=== PATIENT | female | born 1950 | race Caucasian/White ===

== ENCOUNTER → 2017-12-14 09:19 | Outpatient (CLI) | payer MEDICARE, OTHER, SELFPAY ==
--- NOTE | 2017-12-14 09:20 | BI_ITS ---
MAMMOGRAPHY - BILATERAL SCREENING REASON FOR EXAM: Female, 67 years old. Routine annual screening examination. PERTINENT HISTORY: Non-contributory. TECHNIQUE: Digital bilateral breast bryan (3D mammographic acquisition) in the CC and MLO projections. 2-D mediolateral oblique (MLO) and craniocaudad (CC) views of both breasts were obtained. CAD: Full Field Digital Mammography with Computer Added Detection was performed. COMPARISON: Comparison is made with prior study dated December 13, 2016. FINDINGS: Breast Composition: There are scattered areas of fibroglandular density. There are no dominant masses or suspicious calcifications. Stable asymmetry of breast tissue were more breast tissue is seen in the upper outer aspect of the left breast as compared to the right side. Stable 5.4 mm x 5 mm nodule in the anterior right breast. This was demonstrated to be a cyst on prior ultrasound. No other significant abnormalities are identified. There has been no significant change since the prior study. BI/SCREENING MAMM (CAD), BILAT IMPRESSION: Stable bilateral screening mammogram. Yearly follow-up mammogram recommended. (A) ASSESSMENT CATEGORY: BIRADS Category 2: Benign. A letter regarding these results will be sent to the patient by the facility within 30 days. Approximately 10% of breast cancers are not detected by mammography. A normal mammogram should not delay biopsy of a clinically suspicious abnormality. [id number] Electronically Signed: Chip Perry MD at 11:20 EDT Tel [phone], Service support ,
== END ==
PROVIDERS: Family Provider Family Medicine; PCP Family Medicine; Visit Provider Obstetrics & Gynecology
DX: Z12.31 Encounter for screening mammogram for malignant neoplasm of breast (principal)
CPT/HCPCS: 77063; 77067

== ENCOUNTER → 2018-01-24 12:45 | Outpatient (CLI) | payer OTHER, MEDICARE, SELFPAY ==
--- NOTE | 2018-01-24 12:53 | BD_ITS ---
STUDY: DUAL ENERGY X-RAY ABSORPTIOMETRY / DXA REASON FOR EXAM: Female, 67 years old. The patient is postmenopausal. Loss of height. TECHNIQUE: Bone Mineral Density (BMD) measurements of lumbar spine and bilateral hips were obtained. COMPARISON: None. FINDINGS: Lumbar Spine (L1-L4): g/cm2 (1.003) / T-score (-1.5) / Z-score (0.1) Findings are suggestive of osteopenia with a moderate fracture risk. Increased thoracic kyphosis. Left Femur Total: g/cm2 (0.815) / T-score (-1.5) / Z-score (-0.3) Left Femoral Neck: g/cm2 (0.722) / T-score (-2.3) / Z-score (-0.8) Right Femur Total: g/cm2 (0.827) / T-score (-1.4) / Z-score (-0.2) Right Femoral Neck: g/cm2 (0.752) / T-score (-2.1) / Z-score (-0.6) BD/Dexa Bone Density Study IMPRESSION: The patient is considered osteopenic as outlined below according to World Jm Organization (WHO) criteria with a moderate fracture risk. Reference Information: The T-score is the number of standard deviations above or below the standard which is normal for young adults at their peak bone mineral density. The World Health Organization (WHO) interprets the T-scores as follows: Above -1 Normal bone density Between -1 and -2.5 Osteopenia Equal to / or below -2.5 Osteoporosis As a practical clinical guideline, osteopenia may be graded as follows: Mild -1 through -1.5 Moderate -1.6 through -2.0 Severe -2.1 through -2.4 The Z-score is the number of standard deviations above or below age-matched controls. A Z-score of less than -1.5 would be considered abnormal. References: 1. NIH Osteoporosis and Related Bone Diseases http://www.osteo.org 2. International Society for Clinical Densitometry http://www.iscd.org 3. National Osteoporosis Foundation http://www.nof.org Electronically Signed: Chip Perry MD at 8:51 EDT Tel [phone], Service support ,
== END ==
PROVIDERS: Family Provider Family Medicine; PCP Family Medicine; Visit Provider Obstetrics & Gynecology
DX: Z78.0 Asymptomatic menopausal state (principal)
CPT/HCPCS: 77080

== ENCOUNTER → 2018-12-27 10:37 | Outpatient (CLI) | payer MEDICARE, OTHER, SELFPAY ==
[2018-03-03 11:04] VITALS: BMI 30.7
--- NOTE | 2018-12-27 10:41 | BI_ITS ---
MAMMOGRAPHY - BILATERAL SCREENING REASON FOR EXAM: Female, 68 years old. Routine annual screening examination. PERTINENT HISTORY: Non-contributory. TECHNIQUE: Digital bilateral breast dannie (3D mammographic acquisition) in the CC and MLO projections. 2-D mediolateral oblique (MLO) and craniocaudad (CC) views of both breasts were obtained. CAD: Full Field Digital Mammography with Computer Added Detection was performed. COMPARISON: Comparison is made with prior study dated December 14, 2017 and December 13, 2016. FINDINGS: Breast Composition: There are scattered areas of fibroglandular density. There are no dominant masses or suspicious calcifications. Scattered asymmetry of breast tissue or more breast tissue is seen in the upper-outer quadrant of the left breast as compared to the right side. Stable 4 mm x 5 mm well-defined nodule in the anterior retroareolar region of the right breast. This was demonstrated to be a cyst on prior ultrasound. No other significant abnormalities are identified. There has been no significant change since the prior study. BI/SCREEN MAMM (CAD) W/DANNIE BILAT IMPRESSION: Stable bilateral screening mammogram. Yearly follow-up mammogram recommended. (A) ASSESSMENT CATEGORY: BIRADS Category 2: Benign. A letter regarding these results will be sent to the patient by the facility within 30 days. Approximately 10% of breast cancers are not detected by mammography. A normal mammogram should not delay biopsy of a clinically suspicious abnormality. [id number] Electronically Signed: Chip Perry, at 12:54 EDT , Service support ,
== END ==
PROVIDERS: Family Provider Family Medicine; PCP Family Medicine; Referring Provider Obstetrics & Gynecology; Visit Provider Obstetrics & Gynecology
DX: Z12.31 Encounter for screening mammogram for malignant neoplasm of breast (principal)
CPT/HCPCS: 77063; 77067

== ENCOUNTER → 2020-01-17 10:46 | Outpatient (CLI) | payer MEDICARE, OTHER, SELFPAY ==
[2018-03-03 11:04] VITALS: BMI 30.7
[2019-08-01 10:33] VITALS: BMI 30.7
--- NOTE | 2020-01-17 10:46 | BI_ITS ---
MAMMOGRAPHY - BILATERAL SCREENING REASON FOR EXAM: Female, 69 years old. Routine annual screening examination. PERTINENT HISTORY: Non-contributory. TECHNIQUE: Digital bilateral breast dannie (3D mammographic acquisition) in the CC and MLO projections. 2-D mediolateral oblique (MLO) and craniocaudad (CC) views of both breasts were obtained. CAD: Full Field Digital Mammography with Computer Added Detection was performed. COMPARISON: Comparison is made with prior dated 12/27/2018 and December 14. FINDINGS: Breast Composition: There are scattered areas of fibroglandular density. There are no dominant masses or suspicious calcifications. Stable asymmetry of breast tissue with normal breast tissue is seen in the upper-outer quadrant of the left breast compared to the right side. No other significant abnormalities are identified. There has been no significant change since the prior study. BI/SCREEN MAMM (CAD) W/DANNIE BILAT IMPRESSION: Stable bilateral screening mammogram. Yearly follow-up mammogram recommended. (A) ASSESSMENT CATEGORY: BIRADS Category 2: Benign. A letter regarding these results will be sent to the patient by the facility within 30 days. Approximately 10% of breast cancers are not detected by mammography. A normal mammogram should not delay biopsy of a clinically suspicious abnormality. [id number] Electronically Signed: Chip Perry, at 12:16 EDT , Service support ,
== END ==
PROVIDERS: PCP Family Medicine; Referring Provider Obstetrics & Gynecology; Visit Provider Obstetrics & Gynecology
DX: Z12.31 Encounter for screening mammogram for malignant neoplasm of breast (principal)
CPT/HCPCS: 77063; 77067

== ENCOUNTER → 2020-06-02 16:23 | Outpatient (CLI) | payer MEDICARE, OTHER, SELFPAY ==
[2020-06-02 11:01] VITALS: BMI 33.6
[2020-06-06 08:41] LABS: HPV APTIMA, High Risk Negative (Negative)
== END ==
PROVIDERS: PCP Family Medicine; Referring Provider Obstetrics & Gynecology; Visit Provider Obstetrics & Gynecology
DX: Z12.4 Encounter for screening for malignant neoplasm of cervix (principal); R87.619 Unspecified abnormal cytological findings in specimens from cervix uteri
CPT/HCPCS: 87624; 88175; G0145

== ENCOUNTER → 2021-01-23 14:37 | Outpatient (CLI) | payer MEDICARE, OTHER, SELFPAY ==
--- NOTE | 2021-01-23 14:48 | BI_ITS ---
MAMMOGRAPHY - BILATERAL SCREENING REASON FOR EXAM: Female, 70 years old. Routine annual screening examination. PERTINENT HISTORY: Non-contributory. TECHNIQUE: Digital bilateral breast dannie (3D mammographic acquisition) in the CC and MLO projections. 2-D mediolateral oblique (MLO) and craniocaudad (CC) views of both breasts were obtained. CAD: Full Field Digital Mammography with Computer Added Detection was performed. COMPARISON: Comparison is made with prior study dated 01/17/2020 and 12/27/2018. FINDINGS: Breast Composition: There are scattered areas of fibroglandular density. There are no dominant masses or suspicious calcifications. Stable asymmetry of breast tissue where more breast tissue is seen in the upper outer quadrant of the left breast as compared to the right side. No other significant abnormalities are identified. There has been no significant change since the prior study. BI/SCRN MAMM (CAD)W/DANNIE BILAT IMPRESSION: Stable bilateral screening mammogram. Yearly follow-up mammogram recommended. (A) ASSESSMENT CATEGORY: BIRADS Category 2: Benign. A letter regarding these results will be sent to the patient by the facility within 30 days. Approximately 10% of breast cancers are not detected by mammography. A normal mammogram should not delay biopsy of a clinically suspicious abnormality. [id number] Electronically Signed: Chip Perry MD at 8:07 EDT , Service support ,
== END ==
PROVIDERS: PCP Family Medicine; Referring Provider Obstetrics & Gynecology; Visit Provider Obstetrics & Gynecology
DX: Z12.31 Encounter for screening mammogram for malignant neoplasm of breast (principal)
CPT/HCPCS: 77063; 77067

== ENCOUNTER 2021-06-09 11:03 | Outpatient (CLI) | payer MEDICARE, OTHER, SELFPAY ==
--- NOTE | 2021-06-09 11:06 | EKG12_ITS ---
Test Reason : ROUTINE Blood Pressure : / mmHG Vent. Rate : 083 BPM Atrial Rate : 083 BPM P-R Int : 150 ms QRS Dur : 082 ms QT Int : 348 ms P-R-T Axes : 056 050 040 degrees QTc Int : 408 ms Normal sinus rhythm Normal ECG Confirmed by MELODY VERGARA, MINDY ([id number]), health editor ASHLYN CHANEL ([id number]) on 06/11/2021 10:08:12 AM Referred By: Annabel Pandey Confirmed By:MINDY OLIVER MD
== END 2021-06-09 23:59 | disposition home or self-care (01) ==
LOC: PSN 11:05
PROVIDERS: PCP Family Medicine; Referring Provider Obstetrics & Gynecology; Visit Provider Obstetrics & Gynecology
DX: R63.4 Abnormal weight loss (principal)
CPT/HCPCS: 93005

== ENCOUNTER → 2021-12-10 | Outpatient (CLI) | payer MEDICARE, OTHER, SELFPAY ==
[2021-12-10 11:53] LABS: ALB/GLOB Ratio 0.9 RATIO (0.9-2.4); AST(SGOT) 21 U/L (15-37); Alanine Aminotransfer ALT/SGPT 17 U/L (13-56); Albumin, Serum 3.6 g/dL (3.2-5.0); Alkaline Phosphatase 87 U/L (45-117); Anion Gap 5 (5-15); BUN 19 mg/dL (7-18); BUN/Creat Ratio 18.6 RATIO (10-20); Calcium,Total 9.8 mg/dL (8.5-10.1); Chloride 106 mmol/L (98-107); Creatinine, Serum 1.02 mg/dL (0.55-1.02); EST Glomerular Filtration Rate 57 mL/min (>60); Est Glom Filt Rate - Afr Amer 69 mL/min (>60); Globulin 4.2 g/dL (2.2-4.2); Glucose 93 mg/dL (74-106); Potassium 4.3 mmol/L (3.5-5.1); Protein, Total 7.8 g/dL (6.4-8.2); Sodium Level 141 mmol/L (136-145)
== END | disposition home or self-care (01) ==
LOC: PAVLAB 11:00
PROVIDERS: PCP Family Medicine; Referring Provider Obstetrics & Gynecology; Visit Provider Obstetrics & Gynecology
DX: Z71.3 Dietary counseling and surveillance (principal); Z68.28 Body mass index [BMI] 28.0-28.9, adult
CPT/HCPCS: 36415; 80053

== ENCOUNTER → 2022-04-08 | Outpatient (CLI) | payer MEDICARE, OTHER, SELFPAY ==
--- NOTE | 2022-04-08 10:22 | BI_ITS ---
MAMMOGRAPHY - BILATERAL SCREENING REASON FOR EXAM: Female, 71 years old. Routine annual screening examination. PERTINENT HISTORY: Non-contributory. TECHNIQUE: Digital bilateral breast dannie (3D mammographic acquisition) in the CC and MLO projections. 2-D mediolateral oblique (MLO) and craniocaudad (CC) views of both breasts were obtained. CAD: Full Field Digital Mammography with Computer Added Detection was performed. COMPARISON: Comparison is made with prior study 01/23/2021 and 01/17/2020. FINDINGS: Breast Composition: There are scattered areas of fibroglandular density. There are no dominant masses or suspicious calcifications. Stable asymmetry of the breast tissues were more breast tissue is seen in the upper outer quadrant of the left breast as compared to the left side No other significant abnormalities are identified. There has been no significant change since the prior study. BI/SCRN MAMM (CAD)W/DANNIE BILAT IMPRESSION: Stable bilateral screening mammogram. Yearly follow-up mammogram recommended. (A) ASSESSMENT CATEGORY: BIRADS Category 2: Benign. A letter regarding these results will be sent to the patient by the facility within 30 days. Approximately 10% of breast cancers are not detected by mammography. A normal mammogram should not delay biopsy of a clinically suspicious abnormality. [id number] Electronically Signed: Chip Perry MD at 11:15 EST ,
== END | disposition home or self-care (01) ==
LOC: OPBI 10:20
PROVIDERS: PCP Family Medicine; Visit Provider Obstetrics & Gynecology
DX: Z12.31 Encounter for screening mammogram for malignant neoplasm of breast (principal)
CPT/HCPCS: 77063; 77067

== ENCOUNTER → 2023-02-03 | Outpatient (CLI) | payer MEDICARE, OTHER, SELFPAY ==
[2023-02-03 12:02] LABS: Absolute Lymphocyte Count 1.92 X10^3/uL (0.83-4.51); Basophil# 0.06 X10^3/uL; Basophil% 1.1 % (0-1); Eosinophil# 0.16 X10^3/uL; Eosinophils% 2.8 % (0-5); Hematocrit 41.5 % (37-47); Hemoglobin 13.3 g/dL (12.0-15.0); Lymphocyte # 1.92 X10^3/ul (0.83-4.51); Lymphocyte % 33.7 % (19-41); Mean Corpuscular Hgb 29.5 pg (27.0-32.0); Mean Platelet Vol. 9.5 fl (6.2-12.0); Monocyte# 0.55 X10^3/uL; Monocyte% 9.7 % (0-10); NRBC Flagged by Analyzer 0 % (0-5); Neutrophil # 2.98 X10^3/uL (2.7-7.7); Neutrophil % 52.3 % (47-70); Platelet Count 324 K/mm3 (150-450); RBC Distribution Width CV 13.3 % (11.6-14.6); RBC Distribution Width SD 45.6 fl (35.1-43.9); Red Blood Count 4.51 M/mm3 (4.2-5.4); White Blood Count 5.7 K/mm3 (4.4-11.0)
[2023-02-03 12:41] LABS: Anion Gap 3 (5-15); BUN 20 mg/dL (7-18); BUN/Creat Ratio 19.2 RATIO (10-20); Chloride 109 mmol/L (98-107); Creatinine, Serum 1.04 mg/dL (0.55-1.02); EST Glomerular Filtration Rate 56 mL/min (>60); Est Glom Filt Rate - Afr Amer 67 mL/min (>60); Glucose 103 mg/dL (74-106); Potassium 4.2 mmol/L (3.5-5.1); Sodium Level 139 mmol/L (136-145)
== END | disposition home or self-care (01) ==
LOC: LAB 11:32
PROVIDERS: PCP Family Medicine; Referring Provider Obstetrics & Gynecology; Visit Provider Obstetrics & Gynecology
DX: E66.09 Other obesity due to excess calories (principal); E78.5 Hyperlipidemia, unspecified; Z71.3 Dietary counseling and surveillance; Z68.34 Body mass index [BMI] 34.0-34.9, adult
CPT/HCPCS: 36415; 80048; 85025

== ENCOUNTER → 2023-04-21 | Outpatient (CLI) | payer MEDICARE, SELFPAY ==
--- NOTE | 2023-04-21 10:33 | BI_ITS ---
MAMMOGRAPHY - BILATERAL SCREENING REASON FOR EXAM: Female, 72 years old. Routine annual screening examination. PERTINENT HISTORY: Non-contributory. TECHNIQUE: Digital bilateral breast dannie (3D mammographic acquisition) in the CC and MLO projections. 2-D mediolateral oblique (MLO) and craniocaudad (CC) views of both breasts were obtained. CAD: Full Field Digital Mammography with Computer Added Detection was performed. COMPARISON: Comparison is made with prior examination dated October 06, 2022 and January 23, 2022. FINDINGS: Breast Composition: There are scattered areas of fibroglandular density. There are no dominant masses or suspicious calcifications. Stable asymmetry of breast tissue where more breast tissue is seen in the upper outer quadrant of the left breast as compared to the left side. No other significant abnormalities are identified. There has been no significant change since the prior study. BI/SCRN MAMM (CAD)W/DANNIE BILAT IMPRESSION: Stable bilateral screening mammogram. Yearly follow-up mammogram recommended. (A) ASSESSMENT CATEGORY: BIRADS Category 2: Benign. A letter regarding these results will be sent to the patient by the facility within 30 days. Approximately 10% of breast cancers are not detected by mammography. A normal mammogram should not delay biopsy of a clinically suspicious abnormality. [id number] Electronically Signed: Chip Perry MD at 13:26 EST ,
--- OUTSIDE RECORDS SUMMARY | 2023-04-21 10:54 | XMS RPT_ITS | CCD ---
Author Name Unknown Address [address] [place] [address] Organization [facility] Care Team Providers Care Asset Protection Specialist Name Role Phone Dannie VERGARA, Annabel Whitley Unavailable [phone] Juan Francisco Hoffman MD Primary Care Provider [phone] Juan Francisco Hoffmna MD Primary Care Provider [phone] Juan Francisco Hoffman MD Primary Care Provider [phone] JUAN FRANCISCO HOFFMAN Primary Care Unavailable ALEIDA LOMBARDI Attending Unavailable JUAN FRANCISCO HOFFMAN Primary Care Unavailable JUAN FRANCISCO HOFFMAN Referring Unavailable JUAN FRANCISCO HOFFMAN Primary Care Unavailable Allergies Allergy Classification Reported Allergen(s) Allergy Type Date of Onset Reaction(s) Facility (2 sources) sulfamethoxazole / trimethoprim drug allergy 12-08-19 17 [facility] (2 sources) EQL LATEX EXAM GLOVES drug allergy 12-08-19 [facility] (9 sources) Latex; Translations: [LATEX] Drug Intolerance 02-01-20 06 Other: See Comments [facility] Work Phone: (9 sources) Sulfonamides (Antibiotic); Translations: [SULFA (SULFONAMIDE ANTIBIOTICS)] Drug Allergy 01-01-20 05 Hives [facility] Work Phone: Medications Current Medications Medication Drug Class(es) Dates Sig (Normalized) Sig (Original) gabapentin 300 mg oral capsule (11 sources) Anti-epileptic Agent Start: 10-05-2021 End: 09-06-2023 take 1 capsule by mouth twice daily for pain gabapentin (NEURONTIN) 300 mg capsule Indications: RLS (restless legs syndrome) TAKE 1 CAPSULE BY MOUTH TWICE A DAY FOR RADICULAR LEG PAIN AND RESTLESS LEG 180 capsule 1 10/04/2022 09/06/2023 Active Completed/Discontinued Medications Medication Drug Class(es) Dates Sig (Normalized) Sig (Original) aspirin 81 mg chewable tablet (8 sources) Platelet Aggregation Inhibitor, Nonsteroidal Anti-inflammatory Drug Start: 05-10-2018 take 1 tablet by mouth once daily aspirin 81 mg chewable tablet Take 1 tablet by mouth once daily. 0 05/10/2018 Active Problems Active Problems Problem Classification Problem Date Documented Date Episodic/Chronic Disorders of lipid metabolism (15 sources) Mixed hyperlipidemia; Translations: [Mixed hyperlipidemia] Onset: 02-12-2015 Chronic Esophageal disorders (11 sources) Gastroesophageal reflux disease without esophagitis; Translations: [Gastro-esophageal reflux disease without esophagitis] Onset: 02-12-2015 02-12-2015 Chronic Immunizations and screening for infectious disease (1 source) Vaccination needed; Translations: [Encounter for immunization] Episodic Menopausal disorders (8 sources) Menopausal syndrome; Translations: [Menopausal and female climacteric states] Onset: 08-01-2013 02-12-2015 Chronic Miscellaneous mental health disorders (10 sources) Primary insomnia; Translations: [Primary insomnia] Onset: 08-16-2016 11-07-2017 Chronic Osteoarthritis (8 sources) Arthritis of knee; Translations: [Unilateral primary osteoarthritis, unspecified knee] Onset: 01-05-2010 02-13-2016 Chronic Osteoporosis (8 sources) Senile osteoporosis; Translations: [Age-related osteoporosis without current pathological fracture] Onset: 10-06-2010 11-13-2020 Chronic Other hereditary and degenerative nervous system conditions (12 sources) Restless legs; Translations: [Restless legs syndrome] Onset: 05-24-2013 02-12-2015 Chronic Other nutritional; endocrine; and metabolic disorders (7 sources) Simple obesity ; Translations: [Other obesity due to excess calories] Onset: 08-16-2016 08-16-2016 Chronic Other nutritional; endocrine; and metabolic disorders (3 sources) Obesity caused by energy imbalance; Translations: [Other obesity due to excess calories] Onset: 08-16-2016 08-16-2016 Chronic Other skin disorders (2 sources) Lichen sclerosus et atrophicus; Translations: [Lichen sclerosus et atrophicus] Onset: 12-07-2016 12-07-2016 Chronic Unclassified (2 sources) Gynecologic examination ; Translations: [Encounter for gynecological examination (general) (routine) with abnormal findings] Onset: 12-07-2016 12-07-2016 Unclassified (2 sources) Screening mammography ; Translations: [Encounter for screening mammogram for malignant neoplasm of breast] Onset: 12-07-2016 12-07-2016 Past or Other Problems Problem Classification Problem Date Documented Da te Episodic/Chronic Administrative/social admission (6 sources) Advance directive discussed with patient; Translations: [Other specified counseling] Onset: 03-04-2022 Episodic Diabetes mellitus without complication (11 sources) High hemoglobin A1c level; Translations: [Other abnormal glucose] Onset: 05-10-2018 05-10-2018 Episodic Nutritional deficiencies (9 sources) Iron deficiency; Translations: [Iron deficiency] Onset: 02-12-2015 03-23-2021 Episodic Other aftercare (1 source) Drug therapy finding; Translations: [Other safety glass installer (current) drug therapy] Onset: 04-27-2017 04-27-2017 Episodic Other non-traumatic joint disorders (8 sources) Pain in right hip joint; Translations: [Pain in right hip] Onset: 09-10-2019 09-10-2019 Episodic Other screening for suspected conditions (not mental disorders or infectious disease) (16 sources) Patient encounter status; Translations: [Encounter for screening for malignant neoplasm of colon] Onset: 08-16-2016 08-16-2016 Episodic Residual codes; unclassified (6 sources) Active living will ; Translations: [Other specified health status] Onset: 03-04-2022 Episodic Spondylosis; intervertebral disc disorders; other back problems (8 sources) Sacroiliac joint pain; Translations: [Sacrococcygeal disorders, not elsewhere classified] Onset: 09-10-2019 09-10-2019 Episodic Results Test Name Value Interpretation Reference Range Facil ity Vital Signs Date Time Vital Sign Value Performing Clinician Faci lity 09-02-2022 10:51-0400 Body weight 73.94 kg Aleida Lombardi APRN.CNP Work Phone: [facility] 09-02-2022 10:51-0400 Diastolic blood pressure 78 mm[Hg] Aleida Lombardi APRN.CNP Work Phone: [facility] 09-02-2022 10:51-0400 Heart rate 70 /min Aleida Lombardi APRN.CNP Work Phone: [facility] 09-02-2022 10:51-0400 Respiratory rate 14 /min Aleida Lombardi JET HANDLER.MEDICAL RECORDS SECRETARY Work Phone: [facility] 09-02-2022 10:51-0400 Systolic blood pressure 124 mm[Hg] Aleida Lombardi APRN.MEDICAL RECORDS SECRETARY Work Phone: [facility] 03-04-2022 11:06-0500 Body height 158.8 cm Juan Francisco Hoffman MD Work Phone: [facility] 03-04-2022 11:06-0500 Body weight 78.47 kg Juan Francisco Hoffman MD Work Phone: [facility] 03-04-2022 11:06-0500 Diastolic blood pressure 78 mm[Hg] Juan Francisco Hoffman MD Work Phone: [facility] 03-04-2022 11:06-0500 Heart rate 72 /min Juan Francisco Hoffman MD Work Phone: [facility] 03-04-2022 11:06-0500 Respiratory rate 14 /min Juan Francisco Hoffman MD Work Phone: [facility] 03-04-2022 11:06-0500 Systolic blood pressure 116 mm[Hg] Juan Francisco Hoffman MD Work Phone: [facility] 08-19-2021 14:15-0400 Body weight 79.83 kg Juan Francisco Hoffman MD Work Phone: [facility] 08-19-2021 14:15-0400 Diastolic blood pressure 70 mm[Hg] Juan Francisco Hoffman MD Work Phone: [facility] 08-19-2021 14:15-0400 Heart rate 76 /min Juan Francisco Hoffman MD Work Phone: [facility] 08-19-2021 14:15-0400 Respiratory rate 16 /min Juan Francisco Hoffman MD Work Phone: [facility] 08-19-2021 14:15-0400 Systolic blood pressure 120 mm[Hg] Juan Francisco Hoffman MD Work Phone: [facility] 12-07-2016 [id number] BMI (Body Mass Index) 35.94 kg/m2 Annabel Pandey MD [facility] 12-07-2016 15:06-0400 Body Temperature 97.2 [degF] Annabel Pandey MD [facility] 12-07-2016 15:06-0400 BP Diastolic 75 mm[Hg] Annabel Pandey MD [facility] 12-07-2016 15:06-0400 BP Systolic 127 mm[Hg] Annabel Pandey MD [facility] 12-07-2016 15:06-0400 Height 162.56 cm Annabel Pandey MD [facility] 12-07-2016 [id number] Pulse (Heart Rate) 81 /min Annabel Pandey MD [facility] 12-07-2016 15:06-0400 Respiratory Rate 16 /min Annabel Pandey MD [facility] 12-07-2016 [id number] Weight 94.98 kg Annabel Pandey MD [facility] Encounters Encounter Date Encounter Type Care Provider Facility Start: 03-09-2023 End: 03-09-2023 ambulatory Immunization Clinic Nurse Charlene Work Phone: [facility] Start: 12-06-2022 Refchristina allison MD Work Phone: Orthopaedics Start: 10-04-2022 Refill Juan Francisco allison MD Work Phone: [facility] Procedures Date Procedure Procedure Detail Performing Clinician Start: 03-09-2023 INFLUENZA VACCINE, P RSV FREE, AGE 65+ YR, HIGH DOSE, QUADRIVALENT (FLUZONE HIGH-DOSE) Paolo Lester MD Work Phone: Start: 08-25-2022 Lipid 1996 panel - S shea or Plasma [facility] Work Phone: Start: 04-08-2022 Mammography Aleida ashby JET HANDLER.MEDICAL RECORDS SECRETARY Work Phone: Start: 03-04-2022 PFIZER-BIONTeReplicant COVI D-19 BIVALENT BOOSTER VACCINE, AGE 12+ YR Juan Francisco Hoffman MD Work Phone: Start: 03-04-2022 INFLUENZA SEASONAL QUADRIVALENT HIGH DOSE AGE 65+ Juan Francisco Hoffman MD Work Phone: Start: 01-23-2021 Mammography Juan Francisco hicks MD Work Phone: Start: 09-30-2014 Colonoscopy Juan Francisco hicks MD Work Phone: Plan of Treatment Date Care Activity Detail Author Start: 08-26-2027 Lipid panel Lipid Screening [facility] Start: 08-26-2027 LIPID SCREEN LIPID SCREEN [facility] Start: 02-25-2027 LIPID SCREEN LIPID SCREEN [facility] Start: 08-06-2026 LIPID SCREEN LIPID SCREEN [facility] Start: 02-12-2026 LIPID SCREEN LIPID SCREEN [facility] Start: 08-25-2025 DIABETES SCREEN DIABETES SCREEN [facility] Start: 08-25-2025 Diabetes Screening Diabetes Screening [facility] Start: 02-25-2025 DIABETES SCREEN DIABETES SCREEN [facility] Start: 09-30-2024 Colonoscopy COLONOSCOPY [facility] Start: 09-30-2024 COLORECTAL CANCER SCREENING COLORECTAL CANCER SCREENING [facility] Start: 09-30-2024 Screening for malignant neoplasm of colon [facility] Start: 09-04-2024 Urine microalbumin profile [facility] Start: 08-06-2024 DIABETES SCREEN DIABETES SCREEN [facility] Start: 02-13-2024 DIABETES SCREEN DIABETES SCREEN [facility] Start: 04-08-2023 Mammography MAMMOGRAM [facility] Start: 04-08-2023 Screening for malignant neoplasm of breast Mammogram Screening [facility] Start: 11-26-2022 Covid-19 Vaccine ( season) Covid-19 Vaccine ( season) [facility] Start: 11-26-2022 Influenza vaccination INFLUENZA (#1) [facility] Start: 08-20-2022 End: 10-20-2022 Hemoglobin A1c in Blood HGB A1C Lab Routine Elevated hemoglobin A1c Expected: 08/20/2022, Expires: 10/20/2022 [facility] Work Phone: Immunizations Immunization Date Immunization Notes Care Provider Fa cili 03-09-2023 influenza (HD-IIV4) vaccine, age 65+ yr, high dose, quadrivalent, PF (FLUZONE HIGH-DOSE) [facility] Work Phone: [facility] Work Phone: 03-04-2022 COVID-19 booster vaccine, age 12+ yr, bivalent (PFIZER-BIONTECH) Juan Francisco Hoffman MD Work Phone: [facility] 03-04-2022 influenza, high-dose , quadrivalent vaccine (FLUZONE HIGH DOSE QUADRIVALENT) Juan Francisco Hoffman MD Work Phone: [facility] 03-19-2021 COVID-19 vaccine, ag e 12+ yr (PFIZER-BIONTECH - PURPLE TOP) Juan Francisco Hoffman MD Work Phone: [facility] Work Phone: 02-16-2021 influenza, high-dose , quadrivalent vaccine (FLUZONE HIGH DOSE QUADRIVALENT) Juan Francisco Hoffman MD Work Phone: [facility] 07-04-2020 COVID-19 vaccine, ag e 12+ yr (PFIZER-BIONTECH - PURPLE TOP) Juan Francisco Hoffman MD Work Phone: [facility] 06-13-2020 COVID-19 vaccine, ag e 12+ yr (PFIZER-BIONTECH - PURPLE TOP) Juan Francisco Hoffman MD Work Phone: [facility] Work Phone: 04-17-2020 zoster vaccine recombinant Juan Francisco Hoffman MD Work Phone: [facility] 02-13-2020 zoster vaccine recombinant Juan Francisco Hoffman MD Work Phone: [facility] 12-20-2019 influenza, high dose seasonal, preservative-free Juan Francisco Hoffman MD Work Phone: [facility] 05-17-2019 influenza, high dose seasonal, preservative-free Juan Francisco Hoffman MD Work Phone: [facility] 11-09-2018 pneumococcal polysaccharide vaccine, 23 valent Juan Francisco Hoffman MD Work Phone: [facility] 02-07-2018 influenza virus vaccine, unspecified formulation Juan Francisco Hoffman MD Work Phone: [facility] Work Phone: 11-07-2017 pneumococcal conjuga te vaccine, 13 valent Juan Francisco Hoffman MD Work Phone: [facility] 02-03-2017 influenza, injectabl e, quadrivalent, preservative free Juan Francisco Hoffman MD Work Phone: [facility] 02-03-2017 influenza, seasonal, injectable Juan Francisco Hoffman MD Work Phone: [facility] 02-18-2016 influenza, injectabl e, quadrivalent, contains preservative Juan Francisco Hoffman MD Work Phone: [facility] Work Phone: 02-12-2015 influenza, injectabl e, quadrivalent, contains preservative Juan Francisco Hoffman MD Work Phone: [facility] Work Phone: 02-12-2015 influenza, injectabl e, quadrivalent, preservative free Juan Francisco Hoffman MD Work Phone: [facility] 09-04-2014 tetanus toxoid, redu ami diphtheria toxoid, and acellular pertussis vaccine, adsorbed Juan Francisco Hoffman MD Work Phone: [facility] Work Phone: 09-04-2014 zoster vaccine, live Juan Francisco Hoffman MD Work Phone: [facility] Work Phone: 04-26-2013 influenza virus vaccine, unspecified formulation Juan Francisco Hoffman MD Work Phone: [facility] 01-04-2012 influenza virus vaccine, unspecified formulation Juan Francisco Hoffman MD Work Phone: [facility] 01-06-2011 influenza virus vaccine, unspecified formulation Juan Francisco Hoffman MD Work Phone: [facility] 01-05-2010 influenza virus vaccine, unspecified formulation Juan Francisco Hoffman MD Work Phone: [facility] Work Phone: 08-26-2004 diphtheria and tetan us toxoids, adsorbed for pediatric use Juan Francisco Hoffman MD Work Phone: [facility] Work Phone: Payers Date Payer Category Payer Medicare MEDICARE MEDICAR E A AND B [id number] 2017-Present [phone] [place] [address] Medicare [id number] 2017 Medicare MEDICARE MEDICAR E A AND B [id number] 2017-Present [phone] [place] [address] Medicare [id number] 2017 Medicare [id number] 2017 Unknown MMO MMO TRADITIO NAL [id number] 2017-Present [phone] [address] [place] [address] Indemnity [id number] 2017 Unknown MMO MMO [employer] NAL [id number] 2017-Present [phone] [address] [place] [address] Indemnity [id number] Social History Date Type Detail Facility Start: 10-06-2010 Tobacco smoking stat us NHIS Never smoked tobacco [facility] Start: 02-16-2021 End: 03-04-2022 Alcohol intake Current non-drinker of alcohol (finding) [facility] Start: 1950 Sex Assigned At Female [facility] Start: 08-09-2021 End: 08-19-2021 Exposure to SARS-CoV-2 (event) Not sure [facility] Start: 10-06-2010 Tobacco use and exposure Smokeless tobacco non-user [facility] Work Phone: Start: 03-04-2022 End: 09-02-2022 History of Social function [facility] Work Phone: Start: 03-04-2022 End: 09-02-2022 Tobacco use panel [facility] Work Phone: Adult Depression Screening Assessment 0 [facility] Work Phone: Start: 10-31-2019 Gender identity Identifies as female gender (finding) [facility] Start: 10-31-2019 Sexual orientation Heterosexual (fin oskar) [facility] Clinical Notes 06-18-2021 to 12-06-2022 Telephone Encounter - Cristina Watkins - 12/06/2022 11:05 AM EDTTelephone Encounter - Juan Francisco Hoffman MD - 10/04/2022 4:43 PM EDTTelephone Encounter - Rama Leger - 10/04/2022 10:39 AM EDT Note Date & Type Note Facility 12-06-2022 Miscellaneous Notes Patient has been identified by name and date of : Yes Last office visit in this department: Visit date not found RX INSTRUCTIONS: Patient aware RX will be sent to pharmacy. No need to notify patient. Patient phones requesting refills as follows: Requested Prescriptions Pending Prescriptions Disp Refills simvastatin (ZOCOR) 20 mg tablet 90 tablet 1 Sig: Take 1 tablet by mouth every evening. Please review and advise. Cristina Watkins documented in this encounter [facility] 10-04-2022 Miscellaneous Notes The following approved medication requests have been transmitted electronically. Requested Prescriptions Signed Prescriptions Disp Refills gabapentin (NEURONTIN) 300 mg capsule 180 capsule 1 Sig: TAKE 1 CAPSULE BY MOUTH TWICE A DAY FOR RADICULAR LEG PAIN AND RESTLESS LEG Authorizing Provider: JUAN FRANCISCO HOFFMAN MD [facility] 09/02/22 NOV 03/31/23 Please review and advise. Thank you. IMAN Perez Patient has been identified by name and date of : Yes Last office visit in this department: 09/02/2022 RX INSTRUCTIONS: Patient aware RX will be sent to pharmacy. No need to notify patient. Patient phones requesting refills as follows: Requested Prescriptions Pending Prescriptions Disp Refills gabapentin (NEURONTIN) 300 mg capsule 180 capsule 1 Sig: TAKE 1 CAPSULE BY MOUTH TWICE A DAY FOR RADICULAR LEG PAIN AND RESTLESS LEG Please review and advise. Rama Rico Pss documented in this encounter [facility] 09-02-2022 Note HNO ID: [id number] Author: Aleida Lombardi APRN.MEDICAL RECORDS SECRETARY Service: ? Author Type: Nurse Practitioner Type: Progress Notes Filed: 09/02/2022 11:29 AM Note Text: Chief Complaint No chief complaint on file. HPI Britta Kim is a 72 year old female who presents here today for Above Complaints.. Patient presents for routine follow up. Patient recently had lab work done to check cholesterol and screen for diabetes. Past medical history, appointments, medications, allergies reviewed. Previous Medical History PAST MEDICAL HISTORY Diagnosis Date Advance directive discussed with patient 03/04/2022 Discussed 02/2022: Patient to bring in copies Arthritis knees Arthritis of knee 01/05/2010 Climacteric 08/01/2013 Elevated hemoglobin A1c 05/10/2018 GERD without esophagitis 02/12/2015 Iron deficiency 02/12/2015 FELT TO BE RELATED TO HER OMEPRAZOLE. Living will in place 03/04/2022 DPA: Guru (Daughter) Mixed hyperlipidemia 02/12/2015 Non morbid obesity due to excess calories 08/16/2016 Osteopenia 10/06/2010 Primary insomnia 08/16/2016 RLS (restless legs syndrome) Unspecified constipation Previous Surgical History PAST SURGICAL HISTORY Procedure Laterality Date ANESTH OPEN/SURG ARTHRS TOTAL KNEE ARTHROPLASTY 05/13/2014 left knee; Dr Gonzales COLONOSCOPY 09/30/14 normal, repeat 10 yrs COLONOSCOPY FLX DX W/COLLJ SPEC WHEN PFRMD 01/19/06 COLONOSCOPY FLX DX W/COLLJ SPEC WHEN PFRMD 01/21/12 Colonoscopy - repeat 10 yrs EGD 09/30/14 esophagitis FECAL OCCULT BLOOD TEST 09/22/2016 negative KNEE ARTHROSCOP MENISCUS REPAIR MED/LAT LAPAROSCOPY SURG CHOLECYSTECTOMY Cholecystectomy, lap VAGINAL DELIVERY HX x2 Family History FAMILY HISTORY Problem Relation Age of Onset Alzheimer's Disease Mother Thyroid Mother Coronary Artery Disease Father 5 by pass with valve replacement Cancer Maternal Grandmother leukemia Thyroid Daughter Graves Patient Allergies ALLERGIES Allergen Reactions Sulfa (Sulfonamide * Hives Latex Other: See Comments blisters Current Medications Current Outpatient Medications on File Prior to Visit Medication Sig simvastatin (ZOCOR) 20 mg tablet Take 1 tablet by mouth every evening. gabapentin (NEURONTIN) 300 mg capsule TAKE 1 CAPSULE BY MOUTH TWICE A DAY FOR RADICULAR LEG PAIN AND RESTLESS LEG aspirin 81 mg chewable tablet Take 1 tablet by mouth once daily. venlafaxine ER (EFFEXOR XR) 37.5 mg 24 hr capsule Take 1 capsule by mouth once daily. omeprazole (PRILOSEC) 20 mg capsule Take 1 capsule by mouth once daily as needed. Calcium-Vitamin D3-Vitamin K (VIACTIV) 500-100-40 mg-unit-mcg ORAL Chew Take 1 tablet by mouth twice daily. CHEW TAB BEFORE SWALLOWING DAILY MULTIPLE TAB topiramate (TOPAMAX) 25 mg tablet Take 25 mg by mouth twice daily. Phentermine HCl 37.5 mg capsule Take 37.5 mg by mouth. No current facility-administered medications on file prior to visit. Social History Social History Tobacco Use Smoking status: Never Smokeless tobacco: Never Vaping Use Vaping Use: Never used Substance Use Topics Alcohol use: No Drug use: No Review of Symptoms REVIEW OF SYSTEMS SEE HPI EXAM: BP 124/78 Pulse 70 Resp 14 Wt 73.9 kg (163 lb) LMP 12/02/2008 BMI 29.34 kg/m? General Appearance: Well appearing, alert, in no acute distress, well-hydrated, well nourished.. Lungs: Lungs clear to auscultation. No wheezing, rhonchi, rales.. Heart: RRR without murmur, gallop, or rubs. No ectopy. Peripheral Pulses: Normal. Health Maintenance List ADVANCE DIRECTIVE DISCUSSION due on 03/28/2022 DEPRESSION ASSESSMENT due on 03/28/2022 MAMMOGRAM due on 04/08/2023 DTAP,TDAP,TD(3 - Td or Tdap) due on 09/04/2024 COLORECTAL CANCER SCREENING due on 09/30/2024 DIABETES SCREEN due on 08/25/2025 LIPID SCREEN due on 08/26/2027 BONE DENSITY Completed INFLUENZA Completed HEPATITIS C SCREENING Completed SHINGRIX VACCINE Completed COVID-19 VACCINE Completed PNEUMOCOCCAL: 65+ Completed Data Review Component Latest Ref Rng AND Units 08/25/2022 Total Cholesterol, Nonfasting <200 mg/dL 166 Triglycerides, Nonfasting <150 mg/dL 76 HDL Cholesterol, Nonfasting >39 mg/dL 58 LDL Cholesterol, Nonfasting <100 mg/dL 93 Non HDL Cholesterol, Nonfasting <130 mg/dL 108 VLDL Cholesterol, Nonfasting <30 mg/dL 15 Total Chol/HDL Ratio, Nonfasting <5.10 mg/dL 2.86 LDL/HDL Ratio, Nonfasting <2.54 mg/dL 1.60 Hemoglobin A1C 4.3 - 5.6 % 5.5 Estimated Average Glucose mg/dL 111 ASSESSMENT/PLAN: 1. Mixed hyperlipidemia - ICD9: 272.2, ICD10: E78.2 (primary diagnosis) - Controlled - Continue current medications - Counseled on healthy diet and regular exercise - Discussed need for and benefit of weight loss. BMI 29.34 kg/(m2) 2. RLS (restless legs syndrome) - ICD9: 333.94, ICD10: G25.81 -Continue current medications 3. GERD without esophagitis - ICD9: 530.81, ICD10: K21.9 - Discussed lifestyle modifications including (more content not included)... [facility] 09-02-2022 Instructions Aleida Lombardi APRN.CNP - 09/02/2022 11:28 AM EDT Continue current medications Follow up in 6 months for medicare wellness documented in this encounter [facility] 09-02-2022 History of Presen t illness Narrative Chief Complaint No chief complaint on file. MARAL Kim is a 72 year old female who presents here today for Above Complaints.. Patient presents for routine follow up. Patient recently had lab work done to check cholesterol and screen for diabetes. Past medical history, appointments, medications, allergies reviewed. Previous Medical History PAST MEDICAL HISTORY Diagnosis Date Advance directive discussed with patient 03/04/2022 Discussed 02/2022: Patient to bring in copies Arthritis knees Arthritis of knee 01/05/2010 Climacteric 08/01/2013 Elevated hemoglobin A1c 05/10/2018 GERD without esophagitis 02/12/2015 Iron deficiency 02/12/2015 FELT TO BE RELATED TO HER OMEPRAZOLE. Living will in place 03/04/2022 DPA: Guru (Daughter) Mixed hyperlipidemia 02/12/2015 Non morbid obesity due to excess calories 08/16/2016 Osteopenia 10/06/2010 Primary insomnia 08/16/2016 RLS (restless legs syndrome) Unspecified constipation Previous Surgical History PAST SURGICAL HISTORY Procedure Laterality Date ANESTH OPEN/SURG ARTHRS TOTAL KNEE ARTHROPLASTY 05/13/2014 left knee; Dr Gonzales COLONOSCOPY 09/30/14 normal, repeat 10 yrs COLONOSCOPY FLX DX W/COLLJ SPEC WHEN PFRMD 01/19/06 COLONOSCOPY FLX DX W/COLLJ SPEC WHEN PFRMD 01/21/12 Colonoscopy - repeat 10 yrs EGD 09/30/14 esophagitis FECAL OCCULT BLOOD TEST 09/22/2016 negative KNEE ARTHROSCOP MENISCUS REPAIR MED/LAT LAPAROSCOPY SURG CHOLECYSTECTOMY Cholecystectomy, lap VAGINAL DELIVERY HX x2 Family History FAMILY HISTORY Problem Relation Age of Onset Alzheimer's Disease Mother Thyroid Mother Coronary Artery Disease Father 5 by pass with valve replacement Cancer Maternal Grandmother leukemia Thyroid Daughter Graves Patient Allergies ALLERGIES Allergen Reactions Sulfa (Sulfonamide * Hives Latex Other: See Comments blisters Current Medications Current Outpatient Medications on File Prior to Visit Medication Sig simvastatin (ZOCOR) 20 mg tablet Take 1 tablet by mouth every evening. gabapentin (NEURONTIN) 300 mg capsule TAKE 1 CAPSULE BY MOUTH TWICE A DAY FOR RADICULAR LEG PAIN AND RESTLESS LEG aspirin 81 mg chewable tablet Take 1 tablet by mouth once daily. venlafaxine ER (EFFEXOR XR) 37.5 mg 24 hr capsule Take 1 capsule by mouth once daily. omeprazole (PRILOSEC) 20 mg capsule Take 1 capsule by mouth once daily as needed. Calcium-Vitamin D3-Vitamin K (VIACTIV) 500-100-40 mg-unit-mcg ORAL Chew Take 1 tablet by mouth twice daily. CHEW TAB BEFORE SWALLOWING DAILY MULTIPLE TAB topiramate (TOPAMAX) 25 mg tablet Take 25 mg by mouth twice daily. Phentermine HCl 37.5 mg capsule Take 37.5 mg by mouth. No current facility-administered medications on file prior to visit. Social History Social History Tobacco Use Smoking status: Never Smokeless tobacco: Never Vaping Use Vaping Use: Never used Substance Use Topics Alcohol use: No Drug use: No Review of Symptoms REVIEW OF SYSTEMS SEE HPI EXAM: BP 124/78 Pulse 70 Resp 14 Wt 73.9 kg (163 lb) LMP 12/02/2008 BMI 29.34 kg/m General Appearance: Well appearing, alert, in no acute distress, well-hydrated, well nourished.. Lungs: Lungs clear to auscultation. No wheezing, rhonchi, rales.. Heart: RRR without murmur, gallop, or rubs. No ectopy. Peripheral Pulses: Normal. Health Maintenance List ADVANCE DIRECTIVE DISCUSSION due on 03/28/2022 DEPRESSION ASSESSMENT due on 03/28/2022 MAMMOGRAM due on 04/08/2023 DTAP,TDAP,TD(3 - Td or Tdap) due on 09/04/2024 COLORECTAL CANCER SCREENING due on 09/30/2024 DIABETES SCREEN due on 08/25/2025 LIPID SCREEN due on 08/26/2027 BONE DENSITY Completed INFLUENZA Completed HEPATITIS C SCREENING Completed SHINGRIX VACCINE Completed COVID-19 VACCINE Completed PNEUMOCOCCAL: 65+ Completed Data Review Component Latest Ref Rng & Units 08/25/2022 Total Cholesterol, Nonfasting <200 mg/dL 166 Triglycerides, Nonfasting <150 mg/dL 76 HDL Cholesterol, Nonfasting >39 mg/dL 58 LDL Cholesterol, Nonfasting <100 mg/dL 93 Non HDL Cholesterol, Nonfasting <130 mg/dL 108 VLDL Cholesterol, Nonfasting <30 mg/dL 15 Total Chol/HDL Ratio, Nonfasting <5.10 mg/dL 2.86 LDL/HDL Ratio, Nonfasting <2.54 mg/dL 1.60 Hemoglobin A1C 4.3 - 5.6 % 5.5 Estimated Average Glucose mg/dL 111 ASSESSMENT/PLAN: 1. Mixed hyperlipidemia - ICD9: 272.2, ICD10: E78.2 (primary diagnosis) - Controlled - Continue current medications - Counseled on healthy diet and regular exercise - Discussed need for and benefit of weight loss. BMI 29.34 kg/(m^2) 2. RLS (restless legs syndrome) - ICD9: 333.94, ICD10: G25.81 -Continue current medications 3. GERD without esophagitis - ICD9: 530.81, ICD10: K21.9 - Discussed lifestyle modifications including losing weight, limiting caffeine, no meals three hours before sleep, and head of bed elevation - Continue treatment with Prilosec 20 mg QD Aleida Lombardi APRN.MEDICAL RECORDS SECRETARY documented in this encounter [facility] 03-04-2022 Instructions Juan Francisco Hoffman MD - 03/04/2022 11:52 AM EST Please get labs and urine test done on or after 08/20/2022 prior to your next visit. documented in this encounter [facility] 03-04-2022 History of Presen t illness Narrative Medicare Yearly Visit Medical B eligibilty date 07/26/17 Date of last exam 02/16/2021 PAST MEDICAL HISTORY PAST MEDICAL HISTORY Diagnosis Date Arthritis knees Arthritis of knee 01/05/2010 Climacteric 08/01/2013 Elevated hemoglobin A1c 05/10/2018 GERD without esophagitis 02/12/2015 Iron deficiency 02/12/2015 FELT TO BE RELATED TO HER OMEPRAZOLE. Mixed hyperlipidemia 02/12/2015 Non morbid obesity due to excess calories 08/16/2016 Osteopenia 10/06/2010 Primary insomnia 08/16/2016 RLS (restless legs syndrome) Snoring Unspecified constipation PAST SURGICAL HISTORY PAST SURGICAL HISTORY Procedure Laterality Date COLONOSCOP W/ OR W/O [facility] SPEC 01/19/06 COLONOSCOP W/ OR W/O BRS SPEC 01/21/12 Colonoscopy - repeat 10 yrs COLONOSCOPY 09/30/14 normal, repeat 10 yrs EGD 09/30/14 esophagitis FECAL OCCULT BLOOD TEST 09/22/2016 negative KNEE ARTHROSCOP MENISCUS REPAIR MED/LAT LAPAROSCOPIC CHOLEYCYSTECTOMY Cholecystectomy, lap OR ANESTH,TOTAL KNEE ARTHROPLASTY 05/13/2014 left knee; Dr Gonzales VAGINAL DELIVERY HX x2 ALLERGIES: Sulfa (Sulfonamide Antibiotics) and Latex Medications reviewed: Yes FAMILY HISTORY FAMILY HISTORY Problem Relation Age of Onset Alzheimer's Disease Mother Thyroid Mother Coronary Artery Disease Father 5 by pass with valve replacement Cancer Maternal Grandmother leukemia Thyroid Daughter Graves SOCIAL HISTORY: SOCIAL HISTORY Social History Tobacco Use Smoking status: Never Smoker Smokeless tobacco: Never Used Vaping Use Vaping Use: Never used Substance Use Topics Alcohol use: No Drug use: No Britta gets minimal exercise. She watches her diet for sodium, low fat and low cholesterol generally not very much. 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 PHQ-2 / Depression screen Depression Screening 02/13/2016 04/27/2017 05/10/2018 03/04/2022 PHQ-2 Score 0 0 0 0 Depression screening tool completed and reviewed. Based on score and interview, patient is not at risk for depression. Screening tool discussed with patient, and I recommended no further intervention at this time. Functional Ability/Safety Screen 1. Was the patient's timed Up and Go test unsteady or longer than 30 seconds? No 2. Does the patient need help with the phone, transportation, shopping,preparing meals, housework, laundry, medications or managing money? No 3. Does your home have rugs in the hallway, lack of grab bars in the bathroom, lack of handrails on the stairs or have poor lighting? No Hearing Evaluation: normal PHYSICAL EXAM BP 116/78 Pulse 72 Resp 14 Ht 158.8 cm (5' 2.5 ) Wt 78.5 kg (173 lb) LMP 12/11/2008 BMI 31.14 kg/m Alert and oriented X 3: YES Body mass index is 31.14 kg/m . Visual acuity: see opto ASSESSMENT/PLAN: 71 year old female The following prevention plan was discussed during the office visit and provided to the patient: See below Chief Complaint Patient presents with: Medicare Wellness Exam HPI Britta Kim is a 71 year old female who presents here today for extensive exam. Patient with hx of elevated A1c, GERD, RLS, hyperlipidemia, insomnia, ,hot flashes as well as those reviewd and addressed below and in ROS. Overall patient is doing well. Past medical history, appointments, medications, allergies reviewed. Previous Medical History PAST MEDICAL HISTORY Diagnosis Date Advance directive discussed with patient 03/04/2022 Discussed 02/2022: Patient to bring in copies Arthritis knees Arthritis of knee 01/05/2010 Climacteric 08/01/2013 Elevated hemoglobin A1c 05/10/2018 GERD without esophagitis 02/12/2015 Iron deficiency 02/12/2015 FELT TO BE RELATED TO HER OMEPRAZOLE. Living will in place 03/04/2022 DPA: Guru (Daughter) Mixed hyperlipidemia 02/12/2015 Non morbid obesity due to excess calories 08/16/2016 Osteopenia 10/06/2010 Primary insomnia 08/16/2016 RLS (restless legs syndrome) Unspecified constipation Previous Surgical History PAST SURGICAL HISTORY Procedure Laterality Date ANESTH OPEN/SURG ARTHRS TOTAL KNEE ARTHROPLASTY 05/13/2014 left knee; Dr Gonzales COLONOSCOPY 09/30/14 normal, repeat 10 yrs COLONOSCOPY FLX DX W/COLLJ SPEC WHEN PFRMD 01/19/06 COLONOSCOPY FLX DX W/COLLJ SPEC WHEN PFRMD 01/21/12 Colonoscopy - repeat 10 yrs EGD 09/30/14 esophagitis FECAL OCCULT BLOOD TEST 09/22/2016 negative KNEE ARTHROSCOP MENISCUS REPAIR MED/LAT LAPAROSCOPY SURG CHOLECYSTECTOMY Cholecystectomy, lap VAGINAL DELIVERY HX x2 Family History FAMILY HISTORY Problem Relation Age of Onset Alzheimer's Disease Mother Thyroid Mother Coronary Artery Disease Father 5 by pass with valve replacement Cancer Maternal Grandmother leukemia Thyroid Daughter Graves Patient Allergies ALLERGIES Allergen Reactions Sulfa (Sulfonamide * Hives Latex Other: See Comments blisters Current Medications Current Outpatient Medications on File Prior to Visit Medication Sig simvastatin (ZOCOR) 20 mg tablet Take 1 tablet by mouth every evening. gabapentin (NEURONTIN) 300 mg capsule TAKE 1 CAPSULE BY MOUTH TWICE A DAY FOR RADICULAR LEG PAIN AND RESTLESS LEG aspirin 81 mg chewable tablet Take 1 tablet by mouth once daily. venlafaxine ER (EFFEXOR XR) 37.5 mg 24 hr capsule Take 1 capsule by mouth once daily. omeprazole (PRILOSEC) 20 mg capsule Take 1 capsule by mouth once daily as needed. Calcium-Vitamin D3-Vitamin K (VIACTIV) 500-100-40 mg-unit-mcg ORAL Chew Take 1 tablet by mouth twice daily. CHEW TAB BEFORE SWALLOWING DAILY MULTIPLE TAB No current facility-administered medications on file prior to visit. Social History Social History Tobacco Use Smoking status: Never Smokeless tobacco: Never Vaping Use Vaping Use: Never used Substance Use Topics Alcohol use: No Drug use: No Review of Symptoms REVIEW OF SYSTEMS GENERAL: No weight loss, malaise or fevers HEENT: Negative for frequent or significant headaches, No changes in hearing or vision, no nose bleeds or other nasal problems NECK: Negative for lumps, goiter, pain and significant neck swelling RESPIRATORY: Negative for cough, hemoptysis, wheezing, COPD, dyspnea or shortness of breath CARDIOVASCULAR: Negative for chest pain, leg swelling, hypertension, CHF or palpitations GI: No nausea, vomiting, or diarrhea, No frequent heartburn or reflux symptoms, and blood : No history of dysuria, blood MUSCULOSKELETAL: Negative for joint pain or swelling, back pain or muscle pain SKIN: Negative for lesions, rash, and itching PSYCH: Negative for sleep disturbance, mood disorder and recent psychosocial stressors HEMATOLOGY/LYMPHOLOGY: Negative for prolonged bleeding, bruising easily or swollen nodes ENDOCRINE: Negative for cold or heat intolerance, polyuria, polydipsia and goiter NEURO: No history of headaches, syncope, paralysis, seizures or tremors EXAM: BP 116/78 Pulse 72 Resp 14 Ht 158.8 cm (5' 2.5 ) Wt 78.5 kg (173 lb) LMP 12/11/2008 BMI 31.14 kg/m Last 5 Encounter Wt Readings: Date: Wt: 03/04/2022 78.5 kg (173 lb) 08/19/2021 79.8 kg (176 lb) 02/16/2021 82.6 kg (182 lb) 08/14/2020 79.8 kg (176 lb) 02/13/2020 85.3 kg (188 lb) General Appearance: Well appearing, alert, in no acute distress, well-hydrated, well nourished.. Skin: Skin color, texture, turgor normal, no suspicious rashes or lesions. Head: Normocephalic, no masses, lesions, tenderness or abnormalities. Eyes: Anicteric sclera. Pupils are equally round and reactive to light. Extraocular movements are intact. . Ears: External ears, TM's normal, canals clear. Neck: Supple, no adenopathy; thyroid symmetric, normal size, no bruits. Lungs: Lungs clear to auscultation. No wheezing, rhonchi, rales.. Heart: RRR without murmur, gallop, or rubs. No ectopy. Abdomen: Normal abdominal exam, Abdomen soft, non-tender. Bowel sounds normal. No masses, organomegaly. Extremities: No deformities, edema, skin discoloration, Good capillary refill. . Musculoskeletal: Muscular strength intact, No joint swelling, deformity, or tenderness. Peripheral Pulses: Normal. Neurologic: Gait normal. Reflexes normal and symmetric. Sensation to light touch and crainal nerves 2-12 intact.. Health Maintenance List ADVANCE DIRECTIVE DISCUSSION Never done DEPRESSION ASSESSMENT Never done COVID-19 VACCINE(4 - Booster for Pfizer series) due on 05/14/2021 INFLUENZA(1) due on 11/26/2021 MAMMOGRAM due on 01/23/2022 DTAP,TDAP,TD(3 - Td or Tdap) due on 09/04/2024 COLORECTAL CANCER SCREENING due on 09/30/2024 DIABETES SCREEN due on 02/25/2025 LIPID SCREEN due on 02/25/2027 BONE DENSITY Completed HEPATITIS C SCREENING Completed SHINGRIX VACCINE Completed PNEUMOCOCCAL: 65+ Completed Data reviewed Component Latest Ref Rng & Units 02/12/2021 08/06/2021 02/25/2022 WBC 3.70 - 11.00 k/uL 6.63 5.22 RBC 3.90 - 5.20 m/uL 4.81 4.59 Hemoglobin 11.5 - 15.5 g/dL 13.9 13.4 Hematocrit 36.0 - 46.0 % 44.1 41.9 MCV 80.0 - 100.0 fL 91.7 91.3 MCH 26.0 - 34.0 pg 28.9 29.2 MCHC 30.5 - 36.0 g/dL 31.5 32.0 RDW-CV 11.5 - 15.0 % 13.5 13.2 Platelet Count 150 - 400 k/uL 317 288 MPV 9.0 - 12.7 fL 9.7 10.5 Neut% % 55.9 46.7 Abs Neut (ANC) 1.45 - 7.50 k/uL 3.70 2.44 Lymph% % 32.3 37.0 Abs Lymph 1.00 - 4.00 k/uL 2.14 1.93 Kerr% % 7.7 12.3 Abs Kerr <0.87 k/uL 0.51 0.64 Eosin% % 3.3 2.9 Abs Eosin <0.46 k/uL 0.22 0.15 Baso% % 0.8 1.1 Abs Baso <0.11 k/uL 0.05 0.06 Immature Gran % % 0.0 IMMATURE GRANS (ABS) <0.10 k/uL <0.03 NRBC /100 WBC 0.0 Absolute nRBC <0.01 k/uL <0.01 <0.01 DTYPE Auto Nucleated Reds 0 /100 WBC 0.0 Diff Type Auto Diff Protein, Total 6.3 - 8.0 g/dL 7.4 7.3 Albumin 3.9 - 4.9 g/dL 4.0 4.0 Calcium 8.5 - 10.2 mg/dL 9.5 9.3 Bilirubin, Total 0.2 - 1.3 mg/dL 0.4 0.2 Alkaline Phosphatase 34 - 123 U/L 94 85 AST 13 - 35 U/L 21 23 Glucose 74 - 99 mg/dL 91 72 (L) BUN 7 - 21 mg/dL 18 17 Creatinine 0.58 - 0.96 mg/dL 0.90 0.97 (H) Sodium 136 - 144 mmol/L 137 140 Potassium 3.7 - 5.1 mmol/L 4.9 4.3 Chloride 97 - 105 mmol/L 103 104 CO2 22 - 30 mmol/L 26 27 Anion Gap 9 - 18 mmol/L 8 (L) 9 ALT 7 - 38 U/L 12 11 eGFR- >60 eGFR-All Other Races . >60 eGFR >=60 mL/min/1.73m 63 Color Yellow Light Yellow Clarity Clear Cloudy (A) Glucose, Urine Negative Negative Bilirubin, Urine Negative Negative Ketones, Urine Negative Negative Specific [place], Ur 1.005 - 1.030 1.018 Hemoglobin/Blood,Ur Negative Negative pH, Urine 5.0 - 8.0 7.0 Protein, Urine Negative Trace (A) Urobilinogen Negative Negative Nitrites Negative Negative Leukest Negative Negative WBC, Urine 0-5 /HPF 0-5 /HPF RBC, Urine 0-3 /HPF 0-3 /HPF Epithelial Cells /HPF Few Hyaline Cast 0 /LPF 1-3 /LPF (A) Total Cholesterol, Nonfasting <200 mg/dL 197 160 184 Triglycerides, Nonfasting <150 mg/dL 101 56 92 HDL Cholesterol, Nonfasting >39 mg/dL 62 61 63 LDL Cholesterol, Nonfasting <100 mg/dL 115 (H) 88 103 (H) Non HDL Cholesterol, Nonfasting <130 mg/dL 135 (H) 99 121 VLDL Cholesterol, Nonfasting <30 mg/dL 20 11 18 Total Chol/HDL Ratio, Nonfasting <5.10 mg/dL 3.18 2.62 2.92 LDL/HDL Ratio, Nonfasting <2.54 mg/dL 1.85 1.44 1.63 Iron 41 - 186 ug/dL 97 TIBC 232 - 386 ug/dL 350 Transferrin Saturation 15 - 57 % 28 Hemoglobin A1C 4.3 - 5.6 % 5.7 (H) 5.6 5.4 Estimated Average Glucose mg/dL 117 114 108 Magnesium 1.7 - 2.3 mg/dL 2.1 2.0 Vitamin B12 232 - 1,245 pg/mL 438 A/P ASSESSMENT/PLAN: 1. Medicare annual wellness visit, subsequent - ICD9: V70.0, ICD10: Z00.00 (primary diagnosis) - Counseled on healthy diet and regular exercise - Calcium intake with supplements or by diet of 1000 mg/day for under 50, 7234-6527 mg/day for 50+ - Patient was counseled [id number] by myself (the billing provider) for the following immunizations and vaccine components, including side effects: COVID-19 and Influenza. Patient consents for immunization and understands risks and benefits. A VIS sheet on each immunization was given to the patient. - Follow up for annual exam in one year 2. Mixed hyperlipidemia - ICD9: 272.2, ICD10: E78.2 - good control - Encouraged following a low fat, low cholesterol diet. - Discussed the benefits of regular aerobic exercise and weight loss. - Encouraged following a low carbohydrate, healthy oil intake diet. - Continue current therapy. 3. GERD without esophagitis - ICD9: 530.81, ICD10: K21.9 - Continue treatment with Prilosec 20 mg QD 4. Elevated hemoglobin A1c - ICD9: 790.29, ICD10: R73.09 - improved with life style changes. 5. RLS (restless legs syndrome) - ICD9: 333.94, ICD10: G25.81 - stable 6. Primary insomnia - ICD9: 307.42, ICD10: F51.01 - stable no changes. 7. Non morbid obesity due to excess calories - ICD9: 278.00, ICD10: E66.09 Weight decreasing - Behavioral intervention 8. Iron deficiency - ICD9: 280.9, ICD10: E61.1 - last labs good 9. Living will in place - ICD9: V49.89, ICD10: Z78.9 - patient to bring in copies 10. Advance directive discussed with patient - ICD9: V65.49, ICD10: Z71.89 - as per #9 11. Need for vaccination - ICD9: V05.9, ICD10: Z23 - INFLUENZA SEASONAL QUADRIVALENT HIGH DOSE AGE 65+: given - [employer] COVID-19 BIVALENT BOOSTER VACCINE, AGE 12+ YR: given F/u 6 months routine lipid and A1c Prior I spent a total of 40 minutes on the date of the service which included preparing to see the patient, [id number] patient care, completing clinical documentation, performing a medically appropriate examination, counseling and educating the patient/family/caregiver and ordering medications, tests, or procedures. Juan Francisco Hoffman MD documented in this encounter [facility] 12-14-2021 Miscellaneous Notes Patient has been identified by name and date of : Yes Requested Prescriptions Pending Prescriptions Disp Refills simvastatin (ZOCOR) 20 mg tablet 90 tablet 1 Sig: Take 1 tablet by mouth every evening. RX INSTRUCTIONS: Patient aware RX will be sent to pharmacy. No need to notify patient. Antonieta Lubin MA Petar: 07/2021 Nov: 02/2022 Last refill: 05/2021 Patient has been identified by name and date of : Yes Requested Prescriptions Pending Prescriptions Disp Refills simvastatin (ZOCOR) 20 mg tablet 90 tablet 1 Sig: Take 1 tablet by mouth every evening. RX INSTRUCTIONS: Patient aware RX will be sent to pharmacy. No need to notify patient. Debora Dale Pss documented in this encounter [facility] 08-19-2021 History of Presen t illness Narrative Chief Complaint Patient presents with: Follow Up: patient is here for 6 month follow up HPI Britta Kim is a 71 year old female who presents here today for Chronic Medical Conditions.. Patient with hx of elevated A1c, GERD, RLS, hyperlipidemia, insomnia, ,hot flashes as well as those reviewd and addressed below and in ROS. Patient continues to do well. Concerns: Question regarding gabapentin. Should patient continue medication. Would like to see if she can come off the gabapentin. Takes aleve PM or Z-quail for sleep and these do help. Past medical history, appointments, medications, allergies reviewed. Previous Medical History PAST MEDICAL HISTORY Diagnosis Date Arthritis knees Arthritis of knee 01/05/2010 Climacteric 08/01/2013 Elevated hemoglobin A1c 05/10/2018 GERD without esophagitis 02/12/2015 Iron deficiency 02/12/2015 FELT TO BE RELATED TO HER OMEPRAZOLE. Mixed hyperlipidemia 02/12/2015 Non morbid obesity due to excess calories 08/16/2016 Osteopenia 10/06/2010 Primary insomnia 08/16/2016 RLS (restless legs syndrome) Snoring Unspecified constipation Previous Surgical History PAST SURGICAL HISTORY Procedure Laterality Date COLONOSCOP W/ OR W/O [facility] SPEC 01/19/06 COLONOSCOP W/ OR W/O [facility] SPEC 01/21/12 Colonoscopy - repeat 10 yrs COLONOSCOPY 09/30/14 normal, repeat 10 yrs EGD 09/30/14 esophagitis FECAL OCCULT BLOOD TEST 09/22/2016 negative KNEE ARTHROSCOP MENISCUS REPAIR MED/LAT LAPAROSCOPIC CHOLEYCYSTECTOMY Cholecystectomy, lap OR ANESTH,TOTAL KNEE ARTHROPLASTY 05/13/2014 left knee; Dr Gonzales VAGINAL DELIVERY HX x2 Family History FAMILY HISTORY Problem Relation Age of Onset Alzheimer's Disease Mother Thyroid Mother Coronary Artery Disease Father 5 by pass with valve replacement Cancer Maternal Grandmother leukemia Thyroid Daughter Graves Patient Allergies ALLERGIES Allergen Reactions Sulfa (Sulfonamide * Hives Latex Other: See Comments blisters Current Medications Current Outpatient Medications on File Prior to Visit Medication Sig simvastatin (ZOCOR) 20 mg tablet Take 1 tablet by mouth every evening. gabapentin (NEURONTIN) 300 mg capsule TAKE 1 CAPSULE BY MOUTH TWICE A DAY FOR RADICULAR LEG PAIN AND RESTLESS LEG aspirin 81 mg chewable tablet Take 1 tablet by mouth once daily. venlafaxine ER (EFFEXOR XR) 37.5 mg 24 hr capsule Take 1 capsule by mouth once daily. omeprazole (PRILOSEC) 20 mg capsule Take 1 capsule by mouth once daily as needed. Calcium-Vitamin D3-Vitamin K (VIACTIV) 500-100-40 mg-unit-mcg ORAL Chew Take 1 tablet by mouth twice daily. CHEW TAB BEFORE SWALLOWING DAILY MULTIPLE TAB No current facility-administered medications on file prior to visit. Social History Social History Tobacco Use Smoking status: Never Smoker Smokeless tobacco: Never Used Vaping Use Vaping Use: Never used Substance Use Topics Alcohol use: No Drug use: No Review of Symptoms REVIEW OF SYSTEMS GENERAL: No weight loss, malaise or fevers NECK: Negative for lumps, goiter, pain and significant neck swelling RESPIRATORY: Negative for cough, hemoptysis, wheezing, COPD, dyspnea or shortness of breath CARDIOVASCULAR: Negative for chest pain, leg swelling, hypertension, CHF or palpitations GI: No nausea, vomiting, or diarrhea and No heartburn or reflux symptoms MUSCULOSKELETAL: RLS controlled with the gabapentin ENDOCRINE: Negative for cold or heat intolerance, polyuria, polydipsia and goiter NEURO: No history of headaches, syncope, paralysis, seizures or tremors EXAM: BP 120/70 (BP Site: Left Arm, BP Position: Sitting, BP Cuff Size: Regular Adult) Pulse 76 Resp 16 Wt 79.8 kg (176 lb) LMP 12/11/2008 BMI 31.18 kg/m Last 5 Encounter Wt Readings: Date: Wt: 08/19/2021 79.8 kg (176 lb) 02/16/2021 82.6 kg (182 lb) 08/14/2020 79.8 kg (176 lb) 02/13/2020 85.3 kg (188 lb) 10/04/2019 79.8 kg (176 lb) General Appearance: Well appearing, alert, in no acute distress, well-hydrated, well nourished. and Obese. Neck: Supple, no adenopathy; thyroid symmetric, normal size, no bruits. Lungs: Lungs clear to auscultation. No wheezing, rhonchi, rales.. Heart: RRR without murmur, gallop, or rubs. No ectopy. Abdomen: Normal abdominal exam, Abdomen soft, non-tender. Bowel sounds normal. No masses, organomegaly. Extremities: No deformities, edema, skin discoloration, clubbing or cyanosis. . Musculoskeletal: Spine range of motion normal. Muscular strength intact, No joint swelling, deformity, or tenderness. Peripheral Pulses: Normal. Neurologic: Gait normal. Reflexes normal and symmetric. Sensation to light touch and crainal nerves 2-12 intact.. Health Maintenance List ADVANCE DIRECTIVE DISCUSSION Never done COVID-19 VACCINE(4 - Booster for Pfizer series) due on 07/18/2021 MAMMOGRAM due on 01/23/2022 DIABETES SCREEN due on 08/06/2024 DTAP,TDAP,TD(3 - Td or Tdap) due on 09/04/2024 COLORECTAL CANCER SCREENING due on 09/30/2024 LIPID SCREEN due on 08/06/2026 BONE DENSITY Completed INFLUENZA Completed HEPATITIS C SCREENING Completed SHINGRIX VACCINE Completed PNEUMOCOCCAL: 65+ Completed DEPRESSION SCREENING Discontinued Data reviewed Component Latest Ref Rng & Units 02/12/2021 08/06/2021 WBC 3.70 - 11.00 k/uL 6.63 RBC 3.90 - 5.20 m/uL 4.81 Hemoglobin 11.5 - 15.5 g/dL 13.9 Hematocrit 36.0 - 46.0 % 44.1 MCV 80.0 - 100.0 fL 91.7 MCH 26.0 - 34.0 pG 28.9 MCHC 30.5 - 36.0 g/dL 31.5 RDW-CV 11.5 - 15.0 % 13.5 Platelet Count 150 - 400 k/uL 317 MPV 9.0 - 12.7 fL 9.7 Neut% % 55.9 Abs Neut (ANC) 1.45 - 7.50 k/uL 3.70 Lymph% % 32.3 Abs Lymph 1.00 - 4.00 k/uL 2.14 Kerr% % 7.7 Abs Kerr <0.87 k/uL 0.51 Eosin% % 3.3 Abs Eosin <0.46 k/uL 0.22 Baso% % 0.8 Abs Baso <0.11 k/uL 0.05 Nucleated Reds 0 /100 WBC 0.0 Absolute nRBC <0.01 k/uL <0.01 Diff Type Auto Diff Protein, Total 6.3 - 8.0 g/dL 7.4 Albumin 3.9 - 4.9 g/dL 4.0 Calcium 8.5 - 10.2 mg/dL 9.5 Bilirubin, Total 0.2 - 1.3 mg/dL 0.4 Alkaline Phosphatase 34 - 123 U/L 94 AST 13 - 35 U/L 21 Glucose 74 - 99 mg/dL 91 BUN 7 - 21 mg/dL 18 Creatinine 0.58 - 0.96 mg/dL 0.90 Sodium 136 - 144 mmol/L 137 Potassium 3.7 - 5.1 mmol/L 4.9 Chloride 97 - 105 mmol/L 103 CO2 22 - 30 mmol/L 26 Anion Gap 9 - 18 mmol/L 8 (L) ALT 7 - 38 U/L 12 eGFR- >60 eGFR-All Other Races . >60 Total Cholesterol, Nonfasting <200 mg/dL 197 160 Triglycerides, Nonfasting <150 mg/dL 101 56 HDL Cholesterol, Nonfasting >39 mg/dL 62 61 LDL Cholesterol, Nonfasting <100 mg/dL 115 (H) 88 Non HDL Cholesterol, Nonfasting <130 mg/dL 135 (H) 99 VLDL Cholesterol, Nonfasting <30 mg/dL 20 11 Total Chol/HDL Ratio, Nonfasting <5.10 mg/dL 3.18 2.62 LDL/HDL Ratio, Nonfasting <2.54 mg/dL 1.85 1.44 Iron 41 - 186 ug/dL 97 TIBC 232 - 386 ug/dL 350 Transferrin Saturation 15 - 57 % 28 Hemoglobin A1C 4.3 - 5.6 % 5.7 (H) 5.6 Estimated Average Glucose mg/dL 117 114 Hep C Antibody IA Negative Negative A/P ASSESSMENT/PLAN: 1. Mixed hyperlipidemia - ICD9: 272.2, ICD10: E78.2 (primary diagnosis) - good control and - improved control - Encouraged following a low fat, low cholesterol diet. - Discussed the benefits of regular aerobic exercise and weight loss. - Encouraged following a low carbohydrate, healthy oil intake diet. 2. GERD without esophagitis - ICD9: 530.81, ICD10: K21.9 - Begin treatment with Prilosec 20 mg QD 3. Elevated hemoglobin A1c - ICD9: 790.29, ICD10: R73.09 Improved with life style changes. 4. RLS (restless legs syndrome) - ICD9: 333.94, ICD10: G25.81 - Patient will try coming off the gabapentin. If not able will let us know she needs a refill. 5. Non morbid obesity due to excess calories - ICD9: 278.00, ICD10: E66.09 Weight decreasing - Behavioral intervention 6. Primary insomnia - ICD9: 307.42, ICD10: F51.01 - Stable with prn treatment. F/iu 6 months extensive check CMP, lipid A1c, UA, B12, Mg and CBC prior Juan Francisco Hoffman MD documented in this encounter [facility] 06-18-2021 Miscellaneous Notes Pt notified of same. States she got a message that rx was ready. Pamela Medina LPN Original request was sent to [facility]. Please let patient know we are sorry for the delay. Refill sent. Last office visit: 02/15/21 F/u scheduled: 08/19/21 Na Patel Ma Patient Britta called checking on status of prescription-simvastatin 20 mg, she has 1 pill left. Please advise when sent to [facility]ene, . documented in this encounter [facility] Diagnosis Mixed hyperlipidemia- Primary GERD without esophagitis Esophageal reflux Elevated hemoglobin A1c Other abnormal blood chemistry RLS (restless legs syndrome) Restless legs syndrome (RLS) Non morbid obesity due to excess calories Primary insomnia Persistent disorder of initiating or maintaining sleep Medication management Encounter for long-term (current) use of other medications [facility] Mixed hyperlipidemia [facility] Diagnosis Medicare annual wellness visit, subsequent- Primary Routine general medical examination at a health care facility Mixed hyperlipidemia GERD without esophagitis Esophageal reflux Elevated hemoglobin A1c Other abnormal blood chemistry RLS (restless legs syndrome) Restless legs syndrome (RLS) Primary insomnia Persistent disorder of initiating or maintaining sleep Non morbid obesity due to excess calories Iron deficiency Iron deficiency anemia, unspecified Living will in place Advance directive discussed with patient Other specified counseling Need for vaccination Need for prophylactic vaccination and inoculation against unspecified single disease documented in this encounter [facility] note* Diagnosis Mixed hyperlipidemia- Primary RLS (restless legs syndrome) Restless legs syndrome (RLS) GERD without esophagitis Esophageal reflux documented in this encounter [facility] note* Diagnosis RLS (restless legs syndrome) Restless legs syndrome (RLS) documented in this encounter [facility] note* Diagnosis Mixed hyperlipidemia documented in this encounter [facility] Summary Purpose Family History No Family History Records FoundNo Family History Records FoundNo Family History Records FoundNo Family History Records Found Advance Directives No Advanced Directives Records FoundDocuments on File Type Date Recorded Patient Surveillance Technician Expl anation Advance Directive(s) 08/19/2019 8:03 PM Additional Source Comments INFORMATION SOURCE (unrecogn ized section and content) DATE CREATED AUTHOR AUTHOR'S ORGANIZ ATION 10/17/2019 [facility] DATE CREATED AUTHOR AUTHOR'S ORGANIZ ATION 07/08/2020 [facility] DATE CREATED AUTHOR AUTHOR'S ORGANIZ ATION 03/11/2023 [facility] Source Comments (unrecognize d section and content) In the event this informatio n is protected by the Federal Confidentiality of Alcohol and Drug Abuse Patient Records regulations: The Federal rules restrict any use of the information to criminally investigate or prosecute any alcohol or drug abuse patient.[facility] the event this information is protected by the Federal Confidentiality of Alcohol and Drug Abuse Patient Records regulations: The Federal rules restrict any use of the information to criminally investigate or prosecute any alcohol or drug abuse patient.[facility] the event this information is protected by the Federal Confidentiality of Alcohol and Drug Abuse Patient Records regulations: The Federal rules restrict any use of the information to criminally investigate or prosecute any alcohol or drug abuse patient.[facility] the event this information is protected by the Federal Confidentiality of Alcohol and Drug Abuse Patient Records regulations: The Federal rules restrict any use of the information to criminally investigate or prosecute any alcohol or drug abuse patient.[facility] the event this information is protected by the Federal Confidentiality of Alcohol and Drug Abuse Patient Records regulations: The Federal rules restrict any use of the information to criminally investigate or prosecute any alcohol or drug abuse patient.[facility] the event this information is protected by the Federal Confidentiality of Alcohol and Drug Abuse Patient Records regulations: The Federal rules restrict any use of the information to criminally investigate or prosecute any alcohol or drug abuse patient.[facility] the event this information is protected by the Federal Confidentiality of Alcohol and Drug Abuse Patient Records regulations: The Federal rules restrict any use of the information to criminally investigate or prosecute any alcohol or drug abuse patient.[facility] the event this information is protected by the Federal Confidentiality of Alcohol and Drug Abuse Patient Records regulations: The Federal rules restrict any use of the information to criminally investigate or prosecute any alcohol or drug abuse patient.[facility] Reason for Visit (unrecogniz ed section and content) Reason Comments Follow Up patient is here for 6 month follow up Reason Onset Date Comments Refill Request 12/14/2021 Reason Comments Medicare Wellness Exam Reason Onset Date Comments Refill Request 10/04/2022 Care Teams (unrecognized sec tion and content) Asset Protection Specialist Relationship Specialty Start Date End Date Juan Francisco Hoffman MD [address] [place], [place] [id number] PCP - General Family Practice 02/12/15 Asset Protection Specialist Relationship Specialty Start Date End Date Juan Francisco Hoffman MD [address] [place], [place] [id number] PCP - General Family Practice 02/12/15 Asset Protection Specialist Relationship Specialty Start Date End Date Juan Francisco Hoffman MD [address] [place], [place] [address] PCP - General Family Medicine 02/12/15 Asset Protection Specialist Relationship Specialty Start Date End Date Juan Francisco Hoffman MD [address] [place], [place] [id number] PCP - General Family Medicine 02/12/15 Asset Protection Specialist Relationship Specialty Start Date End Date Juan Francisco Hoffman MD [address] [place], [place] [id number] PCP - General Family Medicine 02/12/15 Asset Protection Specialist Relationship Specialty Start Date End Date Juan Francisco Hoffman MD [address] [place] [address] PCP - General Family Medicine 02/12/15 FOR RECORDS PERTAINING TO PATIENTS WHO ARE OR HAVE BEEN ENROLLED IN A CHEMICAL DEPENDENCY/SUBSTANCEABUSE PROGRAM, SOME INFORMATION MAY BE OMITTED. This clinical summary was aggregated from multiple sources. Caution should be exercised in using it in the provision of clinical care. This summary normalizes information from multiple sources, and as a consequence, information in this document may materially change the coding, format and clinical context of patient data. In addition, data may be omitted in some cases. CLINICAL DECISIONS SHOULD BE BASED ON THE PRIMARY CLINICAL RECORDS. [facility]. provides no warranty or guarantee of the accuracy or completeness of information in this document.
== END | disposition home or self-care (01) ==
LOC: OPBI 10:33
PROVIDERS: PCP Family Medicine; Referring Provider Obstetrics & Gynecology; Visit Provider Obstetrics & Gynecology
DX: Z12.31 Encounter for screening mammogram for malignant neoplasm of breast (principal)
CPT/HCPCS: 77063; 77067

== ENCOUNTER → 2023-08-04 | Outpatient (CLI) | payer MEDICARE, SELFPAY ==
[2023-08-06 07:08] LABS: HSV 2 IgG < 0.91 index (0.00-0.90)
[2023-08-07 16:07] LABS: HSV Culture Without Typing Positive (.)
== END | disposition home or self-care (01) ==
PROVIDERS: PCP Family Medicine; Referring Provider Obstetrics & Gynecology; Visit Provider Obstetrics & Gynecology
DX: N90.89 Other specified noninflammatory disorders of vulva and perineum (principal)
CPT/HCPCS: 36415; 86695; 86696; 87255

== ENCOUNTER → 2024-05-03 | Outpatient (CLI) | payer MEDICARE, SELFPAY ==
--- NOTE | 2024-05-03 12:00 | BI_ITS ---
PROCEDURE: SCRN MAMM (CAD)W/DANNIE BILAT REASON FOR EXAM: F, Age 73 y/o, presents for annual screening mammogram. No family history of breast cancer. TECHNIQUE: Bilateral screening digital breast tomosynthesis with 2D and 3D images. Computer aided detection. COMPARISON: 04/21/2023 FINDINGS: There are scattered areas of fibroglandular density. No suspicious masses, areas of developing architectural distortion, or suspicious calcifications. BI/SCRN MAMM (CAD)W/DANNIE BILAT IMPRESSION: There is no mammographic evidence of malignancy in either breast. BI-RADS 1: NEGATIVE. RECOMMEND ANNUAL MAMMOGRAPHIC SCREENING. Follow-up code: Routine Follow-up The patient will be notified of the results by letter. Reading Location: [id number]
--- NOTE | 2024-05-03 12:33 | EKG12_ITS ---
Test Reason : MEDS Blood Pressure : */* mmHG Vent. Rate : 79 BPM Atrial Rate : 79 BPM P-R Int : 158 ms QRS Dur : 82 ms QT Int : 374 ms P-R-T Axes : 44 26 49 degrees QTcB Int : 428 ms Normal sinus rhythm Normal ECG Confirmed by BERNA VERGARA, AURELIO ([id number]), continuity editor JESSICA NGUYEN ([id number]) on 05/04/2024 7:47:42 AM Referred By: Marsha Duarte Confirmed By: AURELIO CORONEL MD
== END | disposition home or self-care (01) ==
PROVIDERS: PCP Family Medicine; Referring Provider Physician Assistant; Visit Provider Physician Assistant
DX: Z12.31 Encounter for screening mammogram for malignant neoplasm of breast (principal)
CPT/HCPCS: 77063; 77067; 93005